=== PATIENT | male | born 1980 | race Caucasian/White ===

== ENCOUNTER 2018-06-20 17:34 | Outpatient (RCR) | payer MEDICAID, SELFPAY ==
--- NOTE | 2018-06-21 09:03 | HP.PTEVAL_ITS ---
Patient's Visit Information FLORECITA WEBBER is a 38 year old M referred to Physical Therapy by WESLEY WU with a diagnosis of LBP with L LE radiculopathy. Date of Evaluation: 06/21/18 Physical Therapist: Zion Spaulding PT, - Visit Plan Frequency: 1x/Week Duration: 2 Weeks Plan: Issue and edu pt on HEP consisting of Postural edu, REIL, core strengthening - Subjective Findings: Pt reports he has had LBP for over 10 years. Pt reports he has received injections and other treatments, but the pain has remained. Pt also notes he has tried to limit his LBP by performing yoga and strengthening ex's. Pt reports this has helped, but his pain has progressively worsened over the past 2 months. Pt reports he finally had to go to his doctors office because his pain was keeping him from sleeping. Pt reports he now has L LE numbness all the way down to his foot. Pt reports he has had xrays, which revealed DDD. 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 Pain ranges from 6/10 to 8/10 - Pain LBP Pain Intensity (Out of 10): 6 Pain Intensity Range: 8 - Objective MMT: B LE's 5/5 throughout. Neuro: B LE sensation is WNL to light touch. B patellar tendon reflex= 2/3. L/S ROM: WNL in all planes but increased pain with flexion. Repeated movements: RFIS peripheralized sx's in L LE. REIL 10x2 alleviated sx's - Goals Goal 1:: I with HEP Goal Time Frame: 2-4 Weeks - Rehabilitation Potential Physical Therapy Diagnosis: Pt has LBP, decreased L/S ROM, and L LE radiculopathy secondary to L/S disc derrangement Rehabilitation Potential: Good - Anticipated Interventions Patient/Client Instruction: Educate patient on: Condition, Plan of Care For the Purpose of:: To improve self management Therapeutic Exercise to Include: Strength training, Endurance training, Postural training, Dynamic Lumbar Stabilization For the Purpose of:: To decrease pain, To improve muscle performance and motor function Thank you for the opportunity to evaluate your patient. For Medicare and Medicare HMO plans, please review the plan of care and approve it. It will need to be FAXED BACK to us at [phone] for Medicare purposes. For Medicare only, by signing this I certify the plan of care. Please let me know if there are questions or concerns regarding this plan of care. Physician Signature: Date:
--- NOTE | 2018-08-09 15:21 | HP.PT.NRP ---
HP - Discharge Summary (1) - Patient Information FLORECITA WEBBER was seen in my office for initial evaluation on 06/21/18. The following Plan of Care was established for this patient: Initial Frequency: 1x/Week Initial Duration: 2 Weeks - Anticipated Interventions Patient/Client Instruction: Educate patient on: Condition, Plan of Care For the Purpose of:: To improve self management Therapeutic Exercise to Include: Strength training, Endurance training, Postural training, Dynamic Lumbar Stabilization For the Purpose of:: To decrease pain, To improve muscle performance and motor function This patient was last seen in our office . Pertinent comments regarding their Physical therapy will appear below: Pt was evaluated on her 06/20/18 for LBP. I developed a POC, but pt has not returned through todays date, and is therefore discontinued at this time. At this point I will be discontinuing this patient from physical therapy. I would be happy to see this patient again in the future if found appropriate by the physician. Thank you! Zion Spaulding, PT, ATC
--- OUTSIDE RECORDS SUMMARY | 2018-08-15 23:24 | XMS RPT_ITS ---
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 weeks. He has had chronic back issues and has seen pain management for his [place] problems [place]. He has gotten injections before which have helped. 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 This aggravates his back. He has some pain in his heels associated with it. He denies numbness now. He has had that in the past. No loss of bowel or bladder control. He denies any injury. Review of Systems Musculoskeletal: Positive for back pain. All other systems reviewed and are negative. PAST MEDICAL HISTORY Diagnosis Date - Fractured hand 07/20/2017 Right hand - Multiple allergies Current Outpatient Prescriptions: ibuprofen (MOTRIN) 400 mg tablet Take 1 tablet by mouth every 6 hours as needed for Pain. Disp: 28 tablet Rfl: 0 predniSONE (DELTASONE) 10 mg tablet Take 4 tabs daily for 3 days, then 2 tabs daily for 3 days, then 1 tab daily for 3 days with food. Disp: 21 tablet Rfl: 0 cyclobenzaprine (FLEXERIL) 10 mg tablet Take 1 tablet by mouth three times daily as needed for Muscle Spasm. Disp: 15 tablet Rfl: 0 No current facility-administered medications for this visit. PAST SURGICAL HISTORY Procedure Laterality Date - APPENDECTOMY FAMILY HISTORY Problem Relation Age of Onset - None Mother - Hypertension Father Social History Substance Use Topics - Smoking status: Former Smoker Years: 10.00 Types: Cigarettes Quit date: 02/20/2006 - Smokeless tobacco: Never Used - Alcohol use Yes Comment: Occasional wine BP 142/86 Pulse 66 Temp 36.4 ?C (97.5 ?F) (Left Tympanic) Resp 16 Wt 78.5 kg (173 lb) BMI 22.82 kg/m? Objective Physical Exam Constitutional: He is oriented to person, place, and time and well-developed, well-nourished, and in no distress. HENT: Head: Normocephalic and atraumatic. Left Ear: External ear normal. Cardiovascular: Normal rate, regular rhythm and normal heart sounds. Pulmonary/Chest: Effort normal and breath sounds normal. Musculoskeletal: Increased pain on bending and twisting of the back. FROM of lower extremities, negative straight leg test bilaterally. DTRs intact and symmetrical bilaterally. Able to ambulate with no issue. No midline tenderness. Neurological: He is alert and oriented to person, place, and time. Nursing note and vitals reviewed. ASSESSMENT/PLAN: 1. Lumbar back pain - ICD9: 724.2, ICD10: M54.5 Chronic low back pain - Ice for localized tenderness - Warm moist heat for 20 min three times a day - Prednisone burst- see orders - Muscle relaxant- see orders - Follow up in 1 weeks or sooner if symptoms persist or worsen. PCP appt est here. Isabell Vallejo PA-C Referring Provider: SELF [[id number]] Allergies As of Date: 03/13/2018 Noted Allergy Reaction CODEINE 07/20/2017 16 - Unknown Date Reviewed: 03/13/2018 Reviewed by: Aidee Gold Ma - Fully Assessed Reason for Visit: Hip Pain [136] Heel Pain [1025] Back Pain [12] Primary Visit Diagnosis:Lumbar back pain [M54.5] Order(s):predniSONE (DELTASONE) 10 mg tabletTake 4 tabs daily for 3 days, then 2 tabs daily for 3 days, then 1 tab daily for 3 days with food.Disp: 21 tabletRfl: 0 cyclobenzaprine (FLEXERIL) 10 mg tabletTake 1 tablet by mouth three times daily as needed for Muscle Spasm.Disp: 15 tabletRfl: 0 Prescriptions as of 03/13/2018 Sig: IBUPROFEN 400 MG TABLET Take 1 tablet by mouth every * PREDNISONE 10 MG TABLET Take 4 tabs daily for 3 days,* CYCLOBENZAPRINE 10 MG TABLET Take 1 tablet by mouth three * Problem List As Of Date 03/13/2018 Noted Resolved JOINT PAIN-UNSPEC [M25.50] INVALID FOR* EXOSTOSIS, SITE NOS [M89.8X9] INVALID FOR* Prescriptions ordered this encounter Disp Refills Start End PREDNISONE 10 MG TABLET 21 t* 0 03/13/2018 03/22/2018 Sig: Take 4 tabs daily for 3 days, then 2 tabs daily for 3 days, then 1 tab daily for 3 days with food. CYCLOBENZAPRINE 10 MG TABLET 15 t* 0 03/13/2018 Route: ORAL Sig: Take 1 tablet by mouth three times daily as needed for Muscle Spasm. Letter Text [place] [facility] CASTILLO Greenberg [facility] [place], [place] [address] 03/13/2018 TO WHOM IT MAY CONCERN: This is to confirm that Florecita Webber had an appointment and was seen at the [facility] in the Department of Urgent Care by CASTILLO Greenberg on 03/13/2018 and may return to work on 03/14/2018. Sincerely yours, CASTILLO Greenberg Encounter Status:Closed by ISABELL VALLEJO PA-C on 03/13/18 HEMOGRAM W/ AUTODIFF Collected: 01/17/2018 Status: F Source: [facility] 6:12 PM SYSTEM REPOSITORY TYPE CODE TESTS RESULT OUT OF REFERENCE UNITS RANGE LAB IWBC 3.6-10.7 10*3/uL WBC High 10.9 LAB RBC 4.40-5.90 10*6/uL RBC Normal 4.53 LAB HGB 13.0-18.0 g/dL Hemoglobin Normal 14.2 LAB HCT 40.0-52.0 % Hematocrit Normal 41.9 LAB MCV 80.0-98.0 fL MCV Normal 92.5 LAB MCH 26.0-34.0 pg MCH Normal 31.3 LAB MCHC 32.0-36.0 % MCHC Normal 33.8 LAB RDW 11.5-14.5 % RDW Normal 12.8 LAB PLT 140-440 10*3/uL Platelet Normal 390 LAB MPV 7.4-10.4 fL MPV Normal 7.4 LAB GRAN% 40.0-80.0 % Granulocytes Normal 57.7 LAB LYMP% 20.0-40.0 % Lymphocytes Normal 31.1 LAB MONO% 2.0-10.0 % Monocytes Normal 8.8 LAB EOS% 1.0-6.0 % Eosinophils Normal 1.6 LAB BAS% 0.0-2.0 % Basophils Normal 0.8 LAB ANC 1.8-7.0 10*3/uL Abs Normal Neutrophile Cnt 6.3 LAB ALC 1.0-4.3 10*3/uL Abs Lymph Cnt Normal 3.4 LAB AMC 0.0-0.8 10*3/uL Abs Monocyte High Cnt 1.0 LAB AEC 0.0-0.5 10*3/uL Abs Eosin Cnt Normal 0.2 LAB ABC 0.0-0.2 10*3/uL Abs Baso Cnt Normal 0.1 Performed By: #### HEMDF, BMP3 #### [facility] [address] [place] [address] BASIC METABOLIC PANEL Collected: 01/17/2018 Status: F Source: [facility] 6:12 PM SYSTEM REPOSITORY TYPE CODE TESTS RESULT OUT OF RANGE REFERENCE UNITS LAB NA3 137-145 mmol/L Sodium Normal 140 LAB K3 3.5-5.1 mmol/L Normal Potassium 3.6 LAB CL3 98-107 mmol/L Chloride Normal 104 LAB CO23 22-30 mmol/L Low Carbon Dioxide 21 LAB ANIN3 NA Anion Gap 15 LAB GLUC3 70-100 mg/dL Glucose Normal 100 LAB BUN3 7-20 mg/dL High Urea Nitrogen 23 LAB CRET3 0.52-1.25 mg/dL Normal Creatinine 1.02 LAB GF3BR >60 mL/min eGFR > 60.0 LAB GF3WR >60 mL/min eGFR OTHER > 60.0 Result Comment: Source- MDRD equation with creatinine calibration to IDMS(NKDEP) eGFR not recommended for drug dose adjustment LAB CA3 8.4-10.4 mg/dL Normal Calcium 9.3 Performed By: #### HEMDF, BMP3 #### [facility] [address] [place] [address] CNNURSE Observed: 08/13/2017 Status: COMPLETED Source: [place] 9:45 AM [facility] REPOSITORY Nurse Visit (AGINTMLW) FLORECITA WEBBER ([id number]) 1980 M Date Time Provider Department 08/13/17 9:45 AM NURSE FERNANDO RADER W INTMLW During your visit today, we recorded the following information about you: Yosef Garza CMA 08/13/2017 10:09 AM Signed Unable to flush pts ear due to pt in to much pain referred to to [facility] he has an apt today at 3:30 Referring Provider: SABRINA HOWARD [[id number]] Allergies As of Date: 08/13/2017 Noted Allergy Reaction CODEINE 07/20/2017 16 - Unknown Date Reviewed: 08/09/2017 Reviewed by: Belem Shin) Percy - Fully Assessed Primary Visit Diagnosis:Ear pain, bilateral [H92.03] Prescriptions as of 08/13/2017 Sig: IBUPROFEN 400 MG TABLET Take 1 tablet by mouth every * Problem List As Of Date 08/13/2017 Noted Resolved JOINT PAIN-UNSPEC [M25.50] INVALID FOR* EXOSTOSIS, SITE NOS [M89.8X9] INVALID FOR* Visit Notes: >> Yosef Garza SunAug 13, 2017 10:04 AM Status: Signed Unable to flush pts ear due to pt in to much pain referred to to [facility] he has an apt today at 3:30 Encounter Status:Closed by YOSEF GARZA on 08/13/17 PROGRESS Observed: 08/09/2017 Status: COMPLETED Source: [place] 9:42 AM [facility] RE[facility] HNO ID: [id number] Author: Sabrina Howard Service: (none) Author Type: Physician Type: Progress Notes Filed: 08/09/2017 10:56 AM Note Text: Subjective: Florecita Webber is a 37 year old White male, Patient presents with: New Patient: Hearing Issues . HPI Was seen in ER 07/20/17 for hand pain - found to have 5th metacarpal / boxer type fracture, his hand was splinted and was referred to Ortho. Saw [facility] 07/31/17 - cast was placed, is due to see Ortho again in 2 weeks. Pain controlled with advil. Ears b/l - clogged, having difficulty hearing, ongoing X 2 years off n on. Needs ears flushed intermittently that resolves the issue. Thinks he might need it again. Wants his ears looked at. No ear pain. No ear drainage. No recent URI symptoms. Occasionally has gas, with abd pain, loose stool. No heartburn. No constipation Weight steady. No dysuria. Quit smoking 11 years ago. Needs Tdap - will give script. PAST MEDICAL HISTORY Diagnosis Date - Fractured hand 07/20/2017 Right hand - Multiple allergies PAST SURGICAL HISTORY Procedure Laterality Date - APPENDECTOMY Social History Substance Use Topics - Smoking status: Former Smoker Years: 10.00 Types: Cigarettes Quit date: 02/20/2006 - Smokeless tobacco: Never Used - Alcohol use Yes Comment: Occasional wine Family history reviewed - F - HTN ALLERGIES Allergen Reactions - Codeine Unknown diptheria,pertussis(acel),tetanus injection (ADACEL, TdaP) injection, Inject 0.5 mL intramuscularly one time only for 1 dose. ibuprofen (MOTRIN) 400 mg tablet, Take 1 tablet by mouth every 6 hours as needed for Pain. No current facility-administered medications for this visit. Review of Systems Constitutional: Negative for chills, fever, malaise/fatigue and weight loss. HENT: Negative for congestion, ear pain and sore throat. Eyes: Negative for blurred vision and double vision. Respiratory: Negative for cough, shortness of breath and wheezing. Cardiovascular: Negative for chest pain, orthopnea and leg swelling. Gastrointestinal: Negative for abdominal pain, constipation, diarrhea, heartburn, nausea and vomiting. Genitourinary: Negative for dysuria. Skin: Negative for rash. Neurological: Negative for dizziness and headaches. Psychiatric/Behavioral: Negative for depression. BP 122/80 Pulse 82 Temp (Src) 98.2 (Oral) Resp 20 Ht 6' 1 (1.85m) Wt 180 lb (81.6kg) SpO2 97% BMI 23.75 kg/(m2). Physical Exam Constitutional: He is oriented to person, place, and time and well-developed, well-nourished, and in no distress. No distress. HENT: Head: Normocephalic. Eyes: Conjunctivae are normal. Right eye exhibits no discharge. Left eye exhibits no discharge. Cardiovascular: Normal rate, regular rhythm, normal heart sounds and intact distal pulses. No murmur heard. Pulmonary/Chest: Effort normal and breath sounds normal. No respiratory distress. He has no wheezes. Abdominal: Soft. Bowel sounds are normal. He exhibits no distension. There is no tenderness. Musculoskeletal: Edema: no LE edema. Neurological: He is alert and oriented to person, place, and time. Skin: Skin is warm and dry. Psychiatric: Mood and affect normal. b/l ears - negative tragal sign, ear wax in EAC blocks view No Cx LAP No mastoid tenderness. No mastoid tenderness. Rt hand cast in place. XRAY Hand 07/20/17 - IMPRESSION: Mildly angulated and minimally displaced oblique fracture of the distal right fifth metacarpal shaft as described above. Dorsal right hand soft tissue swelling. ASSESSMENT/PLAN: 1. Open nondisplaced fracture of fifth metacarpal bone of right hand with routine healing, unspecified portion of metacarpal, subsequent encounter - ICD9: V54.19, ICD10: S62.306D (primary diagnosis) Cont pain control, seeing [facility] 2. Bilateral impacted cerumen - ICD9: 380.4, ICD10: H61.23 Ear irrigation attempted in office - small amount of ear wax removed Rt ear - pt feels 'ear opened up' but there is still a significant amount of ear wax both ears, no pain during irrigation. Pt advised to use debrox ear drops X 2-3 days then come in for b/l ear irrigation - PERS HLTH MGMT EAR WAX REMOVA - PERS HLTH MGMT EAR WAX REMOVA 3. Screening for deficiency anemia - ICD9: V78.1, ICD10: Z13.0 - CBC 4. Screening for diabetes mellitus - ICD9: V77.1, ICD10: Z13.1 - BASIC METABOLIC PNL 5. Screening for lipid disorders - ICD9: V77.91, ICD10: Z13.220 - LIPID PANEL BASIC Needs Tdap - script given. Discussed above plan with patient. Pt agreeable with above plan. Sabrina Howard MD This note was partially generated using [employer] voice recognition system, and there may be some incorrect words, spellings, and punctuation that were not noted in checking the note before saving. CNOV Observed: 08/09/2017 Status: COMPLETED Source: [place] 9:30 AM [facility] REPOSITORY Office Visit (AGINTMLW) FLORECITA WEBBER ([id number]) 1980 M Date Time Provider Department 08/09/17 9:30 AM SABRINA HOWARD AGINTMLW During your visit today, we recorded the following information about you: Temperature Pulse Respiration Blood pressure 98.2 degrees 82/minute 20/minute 122/80 Weight Height 81.6 kg 1.854 m Sabrina Howard MD 08/09/2017 10:56 AM Signed Subjective: Florecita Webber is a 37 year old White male, Patient presents with: New Patient: Hearing Issues . HPI Was seen in ER 07/20/17 for hand pain - found to have 5th metacarpal / boxer type fracture, his hand was splinted and was referred to Ortho. [facility] 07/31/17 - cast was placed, is due to see Ortho again in 2 weeks. Pain controlled with advil. Ears b/l - clogged, having difficulty hearing, ongoing X 2 years off n on. Needs ears flushed intermittently that resolves the issue. Thinks he might need it again. Wants his ears looked at. No ear pain. No ear drainage. No recent URI symptoms. Occasionally has gas, with abd pain, loose stool. No heartburn. No constipation Weight steady. No dysuria. Quit smoking 11 years ago. Needs Tdap - will give script. PAST MEDICAL HISTORY Diagnosis Date - Fractured hand 07/20/2017 Right hand - Multiple allergies PAST SURGICAL HISTORY Procedure Laterality Date - APPENDECTOMY Social History Substance Use Topics - Smoking status: Former Smoker Years: 10.00 Types: Cigarettes Quit date: 02/20/2006 - Smokeless tobacco: Never Used - Alcohol use Yes Comment: Occasional wine Family history reviewed - F - HTN ALLERGIES Allergen Reactions - Codeine Unknown diptheria,pertussis(acel),tetanus injection (ADACEL, TdaP) injection, Inject 0.5 mL intramuscularly one time only for 1 dose. ibuprofen (MOTRIN) 400 mg tablet, Take 1 tablet by mouth every 6 hours as needed for Pain. No current facility-administered medications for this visit. Review of Systems Constitutional: Negative for chills, fever, malaise/fatigue and weight loss. HENT: Negative for congestion, ear pain and sore throat. Eyes: Negative for blurred vision and double vision. Respiratory: Negative for cough, shortness of breath and wheezing. Cardiovascular: Negative for chest pain, orthopnea and leg swelling. Gastrointestinal: Negative for abdominal pain, constipation, diarrhea, heartburn, nausea and vomiting. Genitourinary: Negative for dysuria. Skin: Negative for rash. Neurological: Negative for dizziness and headaches. Psychiatric/Behavioral: Negative for depression. BP 122/80 Pulse 82 Temp (Src) 98.2 (Oral) Resp 20 Ht 6' 1ANDquot; (1.85m) Wt 180 lb (81.6kg) SpO2 97% BMI 23.75 kg/(m2). Physical Exam Constitutional: He is oriented to person, place, and time and well-developed, well-nourished, and in no distress. No distress. HENT: Head: Normocephalic. Eyes: Conjunctivae are normal. Right eye exhibits no discharge. Left eye exhibits no discharge. Cardiovascular: Normal rate, regular rhythm, normal heart sounds and intact distal pulses. No murmur heard. Pulmonary/Chest: Effort normal and breath sounds normal. No respiratory distress. He has no wheezes. Abdominal: Soft. Bowel sounds are normal. He exhibits no distension. There is no tenderness. Musculoskeletal: Edema: no LE edema. Neurological: He is alert and oriented to person, place, and time. Skin: Skin is warm and dry. Psychiatric: Mood and affect normal. b/l ears - negative tragal sign, ear wax in EAC blocks view No Cx LAP No mastoid tenderness. No mastoid tenderness. Rt hand cast in place. XRAY Hand 07/20/17 - IMPRESSION: Mildly angulated and minimally displaced oblique fracture of the distal right fifth metacarpal shaft as described above. Dorsal right hand soft tissue swelling. ASSESSMENT/PLAN: 1. Open nondisplaced fracture of fifth metacarpal bone of right hand with routine healing, unspecified portion of metacarpal, subsequent encounter - ICD9: V54.19, ICD10: S62.306D (primary diagnosis) Cont pain control, seeing [facility] 2. Bilateral impacted cerumen - ICD9: 380.4, ICD10: H61.23 Ear irrigation attempted in office - small amount of ear wax removed Rt ear - pt feels 'ear opened up' but there is still a significant amount of ear wax both ears, no pain during irrigation. Pt advised to use debrox ear drops X 2-3 days then come in for b/l ear irrigation - PERS HLTH MGMT EAR WAX REMOVA - PERS HLTH MGMT EAR WAX REMOVA 3. Screening for deficiency anemia - ICD9: V78.1, ICD10: Z13.0 - CBC 4. Screening for diabetes mellitus - ICD9: V77.1, ICD10: Z13.1 - BASIC METABOLIC PNL 5. Screening for lipid disorders - ICD9: V77.91, ICD10: Z13.220 - LIPID PANEL BASIC Needs Tdap - script given. Discussed above plan with patient. Pt agreeable with above plan. Sabrina Howard MD This note was partially generated using [employer] voice recognition system, and there may be some incorrect words, spellings, and punctuation that were not noted in checking the note before saving. Belem Greer LPN 08/09/2017 9:50 AM Signed New Patient, currently with fractured right hand x 1 month. Here for muffled hearing bilateral ears./MARLEY Monreal MD 08/09/2017 10:43 AM Signed Use Debrox ear drops - Instill 5 to 10 drops twice daily for 2-3 days, then make nurse appointment to get ears cleaned out. Get blood work done as discussed. Referring Provider: SELF [[id number]] Allergies As of Date: 08/09/2017 Noted Allergy Reaction CODEINE 07/20/2017 16 - Unknown Date Reviewed: 08/09/2017 Reviewed by: Belem Greer - Fully Assessed Reason for Visit: New Patient [172] Cmt: Hearing Issues Primary Visit Diagnosis:Open nondisplaced fracture of fifth metacarpal bone of right hand with routine healing, unspecified portion of metacarpal, subsequent encounter [S62.909D] Other Visit Diagnoses:Bilateral impacted cerumen [H61.23] Screening for deficiency anemia [Z13.0] Screening for diabetes mellitus [Z13.1] Screening for lipid disorders [Z13.220] Order(s):diptheria,pertussis(acel),tetanus injection (ADACEL, TdaP) injectionInject 0.5 mL intramuscularly one time only for 1 dose.Disp: 0.5 mLRfl: 0 CBC [SQCBC] Order #: [id number] FUTURE BASIC METABOLIC PNL [SQBMP] Order #: [id number] FUTURE LIPID PANEL BASIC [SQLIPB] Order #: [id number] FUTURE PERS HLTH MGMT EAR WAX REMOVA [[id number]] Order #: [id number] PERS HLTH MGMT EAR WAX REMOVA [[id number]] Order #: [id number] Prescriptions as of 08/09/2017 Sig: DIPHTH,PERTUS(ACEL)TETANUS(PF* Inject 0.5 mL intramuscularly* IBUPROFEN 400 MG TABLET Take 1 tablet by mouth every * Problem List As Of Date 08/09/2017 Noted Resolved JOINT PAIN-UNSPEC [M25.50] INVALID FOR* EXOSTOSIS, SITE NOS [M89.8X9] INVALID FOR* Notes for Staff Discussed this visit Other instructions from your clinician: Use Debrox ear drops - Instill 5 to 10 drops twice daily for 2-3 days, then make nurse appointment to get ears cleaned out. Get blood work done as discussed. Visit Notes: >> Belem Greer Katie Aug 09, 2017 9:47 AM Status: Signed New Patient, currently with fractured right hand x 1 month. Here for muffled hearing bilateral ears./Belem Greer LPN Prescriptions ordered this encounter Disp Refills Start End DIPHTH,PERTUS(ACEL)TETANUS(PF)2LF-(2* 0.5 * 0 08/09/2017 08/09/2017 Class: Print RX Route: INTRAMUSCULA Sig: Inject 0.5 mL intramuscularly one time only for 1 dose. Follow Up: Discussed this visit Disposition: Return in about 1 year (around 08/09/2018) for wellness check. Follow-up and Disposition History Recorded Encounter Status:Closed by MD HOWARD SIMRANJOT on 08/09/17 ED NOTE Observed: 07/20/2017 Status: COMPLETED Source: [place] 12:21 PM [facility] [place] REPOSITORY HNO ID: [id number] Author: Sujata (Rn) TANVI Catalan Service: Emergency Medicine Author Type: Registered Nurse Type: ED Notes Filed: 07/21/2017 10:03 AM Note Text: Patient Call Back Information ? How are you doing ? better ? Did we appropriately manage your pain? Yes ? Did you understand your discharge instructions? Yes ? Did you get your prescriptions filled? Yes ? Were you able to make a follow-up appointment with your physician? Yes ? Were you comfortable during your stay here? Yes ? Did a member of the ER nursing team round on you during your visit? Yes ? You will receive a patient satisfaction survey in the mail in the nest 2 weeks, please take the time to fill out the survey as your input from your ER visit is very important to us. Yes ? Can we do anything else to help you? No HAND 3V PA/LAT/OBL Observed: 07/20/2017 Status: F Source: [facility] 11:55 AM [facility] SYSTEM REPOSITORY Performed at [facility] APPROVED BY: Kenneth Arrieta MD EXAM TITLE: RIGHT HAND 3 VIEWS DATE:07/20/2017 11:42 COMPARISON: Right hand 3 views 09/30/2006. CLINICAL INDICATION/HISTORY: Right hand injury. TECHNIQUE: PA, oblique, and lateral views were obtained of the right hand. FINDINGS: There is an oblique fracture involving the distal fifth metacarpal shaft with 28 degrees of anterior angulation and a few millimeters of medial displacement. Dorsal soft tissue swelling is noted. Ther e is no other evidence of acute fracture. No dislocation or destructive osseous lesion. The visualized joint spaces are well preserved. No evidence of cortical erosion. IMPRESSION: Mildly angulated and minimally displaced oblique fracture of the distal right fifth metacarpal shaft as described above. Dorsal right hand soft tissue swelling. ED NOTE Observed: 07/20/2017 Status: COMPLETED Source: [place] 11:33 AM [facility] REPOSITORY HNO ID: [id number] Author: Bipin AndersonRn) TANVI Peguero Service: Emergency Medicine Author Type: Registered Nurse Type: ED Notes Filed: 07/20/2017 11:34 AM Note Text: Pt refused TDAP, doctor made aware. ED PROV NOTE Observed: 07/20/2017 Status: COMPLETED Source: [place] 11:32 AM [facility] REPOSITORY HNO ID: [id number] Author: Risa Arambula DO Service: Emergency Medicine Author Type: Physician Type: ED Provider Notes Filed: 07/20/2017 12:20 PM Note Text: ED Provider Note Patient Name: Florecita Webber SERVICE DATE: 07/20/17 History Patient presents with: Hand Injury Patient is a 37 year old male presenting with hand injury. 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 used: No Hand Injury Location: Hand Hand location: R hand Injury: yes Time since incident: 1 day Mechanism of injury: crush Mechanism of injury comment: Piece of wood from the wood pile fell directly on his right hand Crush injury: Mechanism: Falling object Pain details: Quality: Aching Radiates to: Does not radiate Severity: Moderate Onset quality: Sudden Duration: 1 day Timing: Constant Progression: Unchanged Handedness: Right-handed Dislocation: no Foreign body present: No foreign bodies Tetanus status: Unknown Prior injury to area: No Relieved by: Nothing Worsened by: Movement Ineffective treatments: Rest Associated symptoms: decreased range of motion, stiffness and swelling Associated symptoms: no back pain, no fatigue, no fever, no muscle weakness, no neck pain, no numbness and no tingling Risk factors: no concern for non-accidental trauma, no frequent fractures and no recent illness No past medical history on file. PAST SURGICAL HISTORY Procedure Laterality Date - APPENDECTOMY FAMILY HISTORY Problem Relation Age of Onset - Hypertension Father - None Mother Social History Social History Main Topics - Smoking status: Current Every Day Smoker Packs/day: 0.50 Years: 10.00 Types: Cigarettes - Smokeless tobacco: Never Used - Alcohol use Yes Comment: 3-4 beers per week - Drug use: No - Sexual activity: Not Asked ALLERGIES Allergen Reactions - Codeine Unknown Review of Systems Constitutional: Negative for fatigue and fever. Musculoskeletal: Positive for arthralgias (right hand) and stiffness. Negative for back pain and neck pain. Skin: Positive for wound (abrasion right hand). Negative for rash. Physical Exam BP 129/70 Pulse 80 Temp 97.9 Resp 16 Ht 6' 0 (1.83m) Wt 170 lb (77.1kg) SpO2 99% BMI 23.05 kg/(m2). Physical Exam Constitutional: He is oriented to person, place, and time. He appears well-developed and well-nourished. HENT: Head: Normocephalic and atraumatic. Eyes: Conjunctivae are normal. Neck: Normal range of motion. No JVD present. Cardiovascular: Normal rate and regular rhythm. Pulmonary/Chest: Effort normal and breath sounds normal. No stridor. No respiratory distress. Musculoskeletal: He exhibits edema and tenderness. Right wrist: He exhibits normal range of motion, no tenderness, no bony tenderness, no swelling, no effusion, no crepitus, no deformity and no laceration. Right hand: He exhibits decreased range of motion, tenderness, bony tenderness and swelling. He exhibits normal capillary refill, no deformity and no laceration. Normal strength noted. Hands: Small abrasion on dorsal right hand just proximal to 3rd and 4th digits A linear abrasion on the ventral surface of the right wrist Neurological: He is alert and oriented to person, place, and time. Skin: Skin is warm and dry. No rash noted. Psychiatric: He has a normal mood and affect. His behavior is normal. Diagnostic Testing ED Labs Ordered and Reviewed - No data to display Procedures Medical Decision Making / ED Course ED Course X-ray ordered. Tdap ordered, as well. X-ray shows a 5th metacarpal / boxer type fracture. Skin intact over the area of fracture. Patient splinted in ulnar gutter splint. He denies punching anything and states it was just the piece of wood from the wood pile that fell onto his hand that caused the injury. I have instructed him to follow up closely with orthopedics. I have referred him to ortho at [facility]. I stressed importance to have this treated by orthopedics especially with him being right handed so he can maintain full function of his right hand. He understands and agrees with plan. Encounter Diagnosis ICD-10-CM 1. Boxer's fracture, closed, initial encounter S62.339A HYDROcodone-acetaminophen (NORCO) 5-325 mg per tablet Plan The Patient was DISCHARGED: Counseled patient regarding radiology results AND suspected diagnosis AND need for follow-up. Discharged home with verbal and written instructions. They were instructed to return as needed for persistent or worsening symptoms or any new concerns. Condition at time of disposition: stable SIGNATURE: DO Risa Chavis DO 07/20/17 1220 ED NOTE Observed: 07/20/2017 Status: COMPLETED Source: [place] 11:32 AM [facility] REPOSITORY HNO ID: [id number] Author: Bipin Hoskins) TANVI Peguero Service: Emergency Medicine Author Type: Registered Nurse Type: ED Notes Filed: 07/20/2017 11:32 AM Note Text: Pt ambulatory to bathroom ED NOTE Observed: 07/20/2017 Status: COMPLETED Source: [place] 11:26 AM [facility] REPOSITORY HNO ID: [id number] Author: Bipin Hoskins) TANVI Peguero Service: Emergency Medicine Author Type: Registered Nurse Type: ED Notes Filed: 07/20/2017 11:27 AM Note Text: Pt sts wood pile fell on right hand last night ALLERGIES ALLERGIES DATE TYPE / CODE NAME / CODE REACTION SEVERITY SOURCE 07/20/2017 DRUG CODEINE UNKNOWN [facility] INGREDI/4195 [facility] [address](SNOMED Repository CT) ENCOUNTERS ENCOUNTERS ADMIT/DISCHARGE ACCOUNT NUMBER ADMITTING ENCOUNTER LOCATION SOURCE CLASS 06/20/2018 [id number] [facility]PT Repository 05/20/2018 [id number] Ambulatory [facility] Other [place] Repository 03/18/2018/03/18/20 [id number] Ambulatory [address] Repository 03/18/2018/03/19/20 [id number] Ambulatory [address] Repository 03/13/2018/03/14/20 [id number] Ambulatory [address] Repository 01/17/2018 [id number] [facility] [address] [place] [address] EDRoom: System [id number]: Repository [id number] PAYERS PAYERS ENCOUNTER GUARANTOR PAYER SUBSCRIBER SOURCE [facility]/20/[facility] Insurance:CARESOURCAYESHA LEOSOB: [facility] Number: [id number] [place], [place] [id number] Repository [address]ao: [phone] Date:2017-07-23 O [phone] () [address]ATTN: [place] [address]NE: 06/20/2018 Secondary NOT GIVENUNK [place] Insurance:SELF PAY [facility] Number: Effective Repository Date:2018-04-25 01/17/2018 [facility]: Insurance:John LeosOB: System [id number] [facility] Number: [id number] [facility] Effective Date: [place] [address]
== END 2018-06-20 19:00 | disposition home or self-care (01) ==
LOC: PT 17:34
DX: M51.36 Other intervertebral disc degeneration, lumbar region (principal); M54.5 Low back pain; M79.18 Myalgia, other site; G89.29 Other chronic pain
CPT/HCPCS: 97162